=== PATIENT | male | born 1985 | race African-American/Black ===

== ENCOUNTER 2019-10-01 07:08 | Emergency (ER) | payer SELFPAY ==
[2019-10-01 07:31] VITALS: BP 119/87; PULSE 68; TEMP 98.4; BMI 31.6
--- NOTE | 2019-10-01 07:45 | PDOC ---
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 He did not recall any preceding event that led to the pain. The pain is constant, worse with movement. He's had low back pain in the past that usually improved after a few days but was concerned that it has not improved in 6 days. He prefers not to take medication but reports some improvement with Aleve yesterday. He's able to walk. Denies urinary retention, urinary or bowel incontinence, urinary frequency, dysuria, fever, LE weakness, or numbness/tingling. PMH: none SH: none Allergies: NKDA Meds: none Soc: no IVDU ROS GENERAL/CONSTITUTIONAL: No fever or chills. No weakness. CARDIOVASCULAR: No chest pain or shortness of breath RESPIRATORY: No cough, wheezing, or hemoptysis. GASTROINTESTINAL: No nausea, vomiting, diarrhea, constipation; no incontinence GENITOURINARY: No dysuria, frequency, no urinary retention or incontinence MUSCULOSKELETAL: No joint or muscle swelling or pain. No neck pain, +back pain NEUROLOGIC: No headache, vertigo, loss of consciousness, or change in strength/sensation. ENDOCRINE: No increased thirst. No abnormal weight change HEMATOLOGIC/LYMPHATIC: No anemia, easy bleeding, or history of blood clots. ALLERGIC/IMMUNOLOGIC: No hives or skin allergy. PE GENERAL: Awake, alert, and fully oriented, in no acute distress HEAD: No signs of trauma, normocephalic, atraumatic EYES: PERRLA, EOMI, sclera anicteric, conjunctiva clear ENT: Auricles normal inspection, hearing grossly normal, nares patent, oropharynx clear without exudates. Moist mucosa NECK: Normal ROM HEART: Regular rate and rhythm, normal S1 and S2, no murmurs, rubs or gallops, peripheral pulses normal and equal bilaterally. LUNGS: No distress, speaks full sentences, clear to auscultation bilaterally ABDOMEN: Soft, nontender EXTREMITIES: Normal inspection, Normal range of motion, no edema. BACK: No palpable step offs, no midline tenderness, no swelling or erythema NEUROLOGICAL: Normal gait, 5/5 strength lower extremities, sensation intact bilaterally, no foot drop, 2+ yola's and patellar reflexes SKIN: Warm, Dry, normal turgor, no rashes or lesions noted Assessment and Plan 1. Muscle strain - motrin, lidocaine patch, and orthopedic referral 2. low suspicion of cauda equina syndrome, epidural abscess, vetebral fracture, spinal cord injury - no imaging indicated 10/01/19 09:31 Past History - Medical History Allergies/Adverse Reactions: Allergies Allergy/AdvReac Type Severity Reaction Status Date / Time No Known Allergies Allergy Verified 10/01/19 07:27 Home Medications: Ambulatory Orders Cyclobenzaprine HCl [Flexeril 10 mg] 10 mg PO HS PRN #10 tablet 10/01/19 Ibuprofen [Motrin -] 400 mg PO BID PRN 10 Days #20 tablet 10/01/19 COPD: No Other medical history: DENIES - Immunization History Immunization Up to Date: Yes - Psycho-Social/Smoking History Smoking History: Never smoked - Substance Abuse Hx (Audit-C & DAST Scrn) How often the patient has a drink containing alcohol: Never Score: In Men: 4 or > Positive; In Women: 3 or > Positive: 0 Screen Result (Pos requires Nsg. Audit-10AR): Negative In the last yr the pt used illegal drug/Rx for NonMed reason: No Score: Yes response is considered Positive: 0 Screen Result (Positive result requires Nsg. DAST-10): Negative *Physical Exam - Vital Signs Last Vital Signs Temp Pulse Resp BP Pulse Ox 98.4 F 68 20 119/87 100 10/01/19 07:28 10/01/19 07:28 10/01/19 07:28 10/01/19 07:28 10/01/19 07:28 Medical Decision Making - Medical Decision Making 34M w/o medical history presents to the ED with back pain that started 6 days ago without any preceding event. He had no red flag symptoms. Neuro exam of the lower extremities demonstrated 5/5 strength bilaterally, 2+ reflexes, no sensory deficit, no foot drop. Patient is a healthy 34M with intact neuro exam therefore a rectal exam was unnecessary. Muscle strain is highest on the differential. Very low suspicion of cauda equina syndrome, epidural abscess, discitis, vertebral fracture, or spinal cord injury. Patient was given motrin and lidocaine patch. Patient is safe for discharge and to follow up with orthopedics if pain is persistent. Discharge - Discharge Information Problems reviewed: Yes Clinical Impression/Diagnosis: Low back pain Qualifiers: Chronicity: acute Back pain laterality: unspecified Sciatica presence: without sciatica Qualified Code(s): M54.5 - Low back pain Condition: Stable Disposition: HOME - Admission No - Additional Discharge Information Prescriptions: Cyclobenzaprine HCl [Flexeril 10 mg] 10 mg PO HS PRN #10 tablet PRN Reason: Pain Ibuprofen [Motrin -] 400 mg PO BID PRN 10 Days #20 tablet PRN Reason: Pain - Follow up/Referral Referrals: Darshan Gómez MD [Primary Care Provider] - Sky Bains MD [Staff Physician] - - Patient Discharge Instructions Patient Printed Discharge Instructions: DI for Low Back Pain, DI for Back Strain or Sprain Additional Instructions: You came into the ED because of back pain lasting 6 days. Physical exam didn't show any neurological problems or any other concerning signs of further workup. It is most likely a muscle strain that's lasted longer than it has for you in the past. We gave you motrin and a lidocaine patch. You will be referred to orthopedics. Return to the ED if you have any numbness, tingling, weakness in your legs, severe back pain, or inability to walk. - Post Discharge Activity Work/Back to School Note: Back to Work
[2019-10-01] MEDS ORDERED: IBUPROFEN 600 MG TABLET (FP) PO ONE ×2 (08:33→08:38)
[2019-10-01] MEDS ORDERED: LIDOCAINE 5% TOPICAL PATCH TP ONE (08:34)
[2019-10-01] MEDS ORDERED: LIDOCAINE 5% TOPICAL PATCH ONE (08:38)
--- NOTE | 2019-10-01 09:30 | PDOC ---
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 No fall or direct trauma but does heavy lifting on a daily basis pain is worse when changing position and bending over slightly alleviated by sitting still worse in the morning denies fever chills weight loss weakness numbness bowel bladder incontinence symptoms are mild to moderate persistent constant 5-6 out of 10 exacerbated by change in position. No radiation. - Physicial Exam PE: 10/01/19 09:30 Vitals: Triage Vital signs reviewed General Appearance: No acute distress, well nourished well developed, Head: Atraumatic, Cardiac: Regular rate and rhythym, no murmurs, no rubs, no gallops, Lungs: Clear to auscultation bilateral, good air movement bilaterally, Abdomen: Soft, non distended, normal bowel sounds, non tender to palpation Extremities: Full range of motion to all extremities, no cyanosis, clubbing, or edema Skin: Warm and dry, no rashes or lesions, no rash, no petechiae Musculoskeletal: Reproducible midline and paraspinal low back tenderness to palpation Neuro: AOX3; cranial Nerves 2-12 grossly intact, strength intact to all extremities, sensation intact to all extremities, gait normal Psych: Normal mood, normal affect - Medical Decision Making 10/01/19 09:31 No trauma no red flags in patient's history patient provided with spine follow- up instructed to follow-up this week. Instructed to return to ED for any severe worsening symptoms or for any concerns Findings, need for follow-up and strict return instructions discussed with patient. Discharge - Discharge Information Problems reviewed: Yes Clinical Impression/Diagnosis: Low back pain Qualifiers: Chronicity: acute Back pain laterality: unspecified Sciatica presence: without sciatica Qualified Code(s): M54.5 - Low back pain Condition: Stable Disposition: HOME - Admission No - Additional Discharge Information Prescriptions: Cyclobenzaprine HCl [Flexeril 10 mg] 10 mg PO HS PRN #10 tablet PRN Reason: Pain Ibuprofen [Motrin -] 400 mg PO BID PRN 10 Days #20 tablet PRN Reason: Pain - Follow up/Referral Referrals: Sky Bains MD [Staff Physician] - Darshan Gómez MD [Primary Care Provider] - - Patient Discharge Instructions Patient Printed Discharge Instructions: DI for Low Back Pain, DI for Back Strain or Sprain Additional Instructions: You came into the ED because of back pain lasting 6 days. Physical exam didn't show any neurological problems or any other concerning signs of further workup. It is most likely a muscle strain that's lasted longer than it has for you in the past. We gave you motrin and a lidocaine patch. You will be referred to orthopedics. Return to the ED if you have any numbness, tingling, weakness in your legs, severe back pain, or inability to walk. - Post Discharge Activity Work/Back to School Note: Back to Work
[2019-10-01] MEDS ORDERED: LIDOCAINE PATCH REMOVAL MC SCH (22:00)
== END 2019-10-01 09:25 | disposition home or self-care (01) ==
LOC: JER 07:08
DX: M54.5 Low back pain (principal)
CPT/HCPCS: 99284-25